=== PATIENT | female | born 1985 | race Caucasian/White ===

== ENCOUNTER 2019-06-04 12:19 | Emergency (ER) | payer SELFPAY ==
[~2019-06-04] VITALS: Ht 170.2 cm; Wt 84.5 kg
[~2019-06-04 12:19] MED LIST: ABILIFY5 MG PO; AMOXICILLIN 50500 MG PO; ANTIVERT 25MG25 MG PO; ANXIETY MED; AZO YEAST 6 X-61 TAB PO; BENADRYL; BENADRYL25 M1 PO; CARAFATE S1 GM/10 ML PO; CARAFATE1 GM PO; CELEXA 20MG20 MG/TAB PO; CELEXA40 MG PO; CEPHALEXIN500 M1 PO; DOXYCYCLINE 10100 MG PO; EC NAPROSYN500 MG PO; FERROUS SULFAT325 M1 PO; FLEXERIL10 MG PO; FLINTSTONES1 CTB PO; GABARONE100 MG PO; IMITREX100 MG PO; IUD; KLONOPIN2 MG; LORTAB 5/500 501 TAB PO; MIRAPEX0.25 MG PO; MOTRIN800 MG PO; MULTIPLE VITAMI1 CAP PO; NAPROSYN500 MG PO; NORCO 325 MG-51 TAB PO; PAXIL 10MG10 MG PO; PAXIL10 MG PO; PEN-VEE K500 MG PO; PEPCID 20MG TAB20 MG PO; PERCOCET 325 MG1 TA2 PO; PHENERGAN 25 TA25 MG PO; PHENERGAN25 MG RC; PRENATAL VITAMI1 TA5 PO; PREVACID 30MG30 M1 PO; PRIL40; PROMETHAZINE12.5 M5 PO; PROTONIX 40MG T40 MG PO; PROTONIX40 MG PO; RANITIDINE HCL150 M1 PO; RESTORIL 1515 MG/CAP PO; TESSALON P100 MG/CAP PO; TUSS PO; ULTRAM 50MG TAB50 MG; VICODIN 5/5001 UDTAB PO; VITAMINS; XANAX .25M0.25 MG/TA PO; XANAX 0.5MG0.5 MG PO; ZANTAC 150MG T150 MG PO; ZITHROMAX 250M250 MG PO; ZOFRAN 4MG T4 MG/TAB PO; [UNRECOGNIZED DRUG - REMARK]
[2019-06-04 12:29] VITALS: BP 117/77; PULSE 80; TEMP 98
[2019-06-04 12:52] LABS: COLLECTION METHOD CLEAN CATCH
[2019-06-04 12:58] LABS: MUCOUS Present /lpf; PH 7 (5-8); URINE APPEARANCE Hazy; URINE BACTERIA None Seen /hpf; URINE BILIRUBIN Negative (NEGATIVE); URINE BLOOD Negative (NEGATIVE); URINE COLOR Yellow; URINE GLUCOSE Negative (NEGATIVE); URINE KETONE Negative (NEGATIVE); URINE LEUKOCYTE ESTERASE Negative (NEGATIVE); URINE NITRATE Negative (NEGATIVE); URINE PROTEIN(semi-quant) Negative (NEGATIVE); URINE RBC 0-2 /hpf; URINE UROBILINOGEN Negative (NEGATIVE)
== END 2019-06-04 13:33 | disposition left against medical advice (07) ==
LOC: COL.ER 12:19
PROVIDERS: Family Medicine
DX: R10.11 Right upper quadrant pain (principal)